=== PATIENT | female | born 1975 | race Caucasian/White ===

== ENCOUNTER 2019-02-27 17:36 | Emergency (ER) | payer OTHER, SELFPAY ==
[2019-02-27 17:49] VITALS: BP 128/88; PULSE 96; RESP 14; TEMP 37; O2SAT 99
--- NOTE | 2019-02-27 18:17 | ED.LOWEXIN ---
HPI - Extremity Injury (Lower) <Jeanne Pathak PA-C - Last Filed: 02/27/19 21:02> General Chief Complaint: Extremity Injury, Lower Stated Complaint: right calf injury today Time Seen by Provider: 02/27/19 18:16 Source: patient Mode of arrival: wheelchair Limitations: no limitations History of Present Illness HPI Narrative: This 43-year-old female states that she was playing kickball earlier, running between bases, when she felt a pop in her right calf and then had pain and could not bear weight. She states she did not fall or have any other injury, denies pain in the ankle or knee. She states this is similar to injury she had last year. She took 400 mg of ibuprofen. She denies any possibility of Related Data Home Medications Medication Instructions Recorded Confirmed ibuprofen #0 12/08/17 Previous Rx's Medication Instructions Recorded hydrocodone-acetaminophen 0 tab PO Q6HP PRN #15 tab 12/08/17 Allergies Allergy/AdvReac Type Severity Reaction Status Date / Time No Known Drug Allergies Allergy Verified 02/27/19 18:40 Review of Systems <Jeanne Pathak PA-C - Last Filed: 02/27/19 21:02> Review of Systems ROS Unobtainable: All systems reviewed & are unremarkable except as noted in HPI and below PFSH <Jeanne Pathak PA-C - Last Filed: 02/27/19 21:02> Medical History (Updated 02/27/19 @ 19:34 by Jeanne Pathak PA-C) No chronic problems (Chronic) Surgical History (Updated 02/27/19 @ 18:52 by Jeanne Pathak PA-C) 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 LUNGS: Clear to auscultation bilaterally. HEART: Rate and rhythm regular without murmur, normal S1 and S2, no S3 or S4. MUSCULOSKELETAL: No tenderness over the right foot or ankle. Achilles is intact by palpation. Tender over the right mid the calf and medial more than lateral border of the calf. No tenderness at the calf insertions. No tenderness over the right knee. She has full range of motion of the right ankle nonweightbearing, able to dorsiflex and plantar flex the foot against resistant. NEUROVASCULAR: Right foot is warm and pink with brisk cap refill, sensation is grossly intact Initial Vital Signs Initial Vital Signs: Vital Signs Temperature 98.6 F 02/27/19 17:49 Pulse Rate 96 H 02/27/19 17:49 Respiratory Rate 14 02/27/19 17:49 Blood Pressure 128/88 02/27/19 17:49 Pulse Oximetry 99 02/27/19 17:49 <Hi Beck DO - Last Filed: 02/27/19 21:14> Initial Vital Signs Initial Vital Signs: Vital Signs Temperature 98.6 F 02/27/19 17:49 Pulse Rate 96 H 02/27/19 17:49 Respiratory Rate 14 02/27/19 17:49 Blood Pressure 128/88 02/27/19 17:49 Pulse Oximetry 99 02/27/19 17:49 Course <Jeanne Pathak PA-C - Last Filed: 02/27/19 21:02> Orders Ordered: Discontinued Medications Hydrocodone Bitart/Acetaminophen ([place] 5/325) 2 tab PO NOW ONE Stop: 02/27/19 18:31 Last Admin: 02/27/19 18:38 Dose: 2 tab Hydrocodone Bitart/Acetaminophen (Vicodin Prepack) 1 bottle MISC SEEINSTR ONE Stop: 02/27/19 19:39 Last Admin: 02/27/19 19:50 Dose: 1 bottle Cyclobenzaprine HCl (Flexeril 10 Mg Prepack) 1 bottle MISC SEEINSTR ONE Stop: 02/27/19 19:39 Last Admin: 02/27/19 19:49 Dose: 1 bottle Ibuprofen (Advil) 400 mg PO NOW ONE Stop: 02/27/19 18:31 Last Admin: 02/27/19 18:38 Dose: 400 mg Vital Signs - 8 hr 02/27/19 17:49 02/27/19 20:01 Temperature 98.6 F Pulse Rate 96 H 96 H Respiratory Rate 14 18 Blood Pressure 128/88 147/87 H Pulse Oximetry 99 97 <Hi Kiran, DO - Last Filed: 02/27/19 21:14> Orders Ordered: Discontinued Medications Hydrocodone Bitart/Acetaminophen ([place] 5/325) 2 tab PO NOW ONE Stop: 02/27/19 18:31 Last Admin: 02/27/19 18:38 Dose: 2 tab Hydrocodone Bitart/Acetaminophen (Vicodin Prepack) 1 bottle MISC SEEINSTR ONE Stop: 02/27/19 19:39 Last Admin: 02/27/19 19:50 Dose: 1 bottle Cyclobenzaprine HCl (Flexeril 10 Mg Prepack) 1 bottle MISC SEEINSTR ONE Stop: 02/27/19 19:39 Last Admin: 02/27/19 19:49 Dose: 1 bottle Ibuprofen (Advil) 400 mg PO NOW ONE Stop: 02/27/19 18:31 Last Admin: 02/27/19 18:38 Dose: 400 mg Vital Signs - 8 hr 02/27/19 17:49 02/27/19 20:01 Temperature 98.6 F Pulse Rate 96 H 96 H Respiratory Rate 14 18 Blood Pressure 128/88 147/87 H Pulse Oximetry 99 97 Discharge Plan Departure Patient Disposition: Home Clinical Impression: Strain of calf muscle Qualifiers: Encounter type: initial encounter Laterality: right Qualified Code(s): S86.811A - Strain of other muscle(s) and tendon(s) at lower leg level, right leg, initial encounter Discharge Date/Time: 02/27/19 20:01 Interventions: ED Discharge Assessment Last Done: 02/27/19 20:01 Instructions: DI for Calf Muscle Strain Activity Restrictions/Additional Instructions: Today it looks like you have torn fibers in your calf muscle (strain), but the muscle does not appear to be completely torn off of its attachments. Please continue to rest this, take ibuprofen 800 mg every 8 hours. We gave you a little bit of hydrocodone/acetaminophen in addition for pain (1 tablet every 4 hours) and muscle relaxant called cyclobenzaprine (1 tablet every 8 hours) which you can take as needed, but do not drive as these can make you sleepy. Please call your clinic 1st thing in the morning and let them know you were seen in the emergency room and need to be seen for follow-up. Please keep your calf wrapped if it helps for support and comfort. Continue ice tonight, and use crutches whenever you are on your feet. As we talked about, you may need imaging studies if you are not getting better or you may need repeat physical therapy as you had previously for similar injury. Return to the closest ED if you have any acutely worsening symptoms or new symptoms such as color change or sensation loss in your foot. Prescriptions: No Action ibuprofen 800 MG tablet Qty: 0 RF: 0 hydrocodone-acetaminophen 5 MG/325 MG tablet PO Q6HP PRNQty: 15 RF: 0 Referrals: Anson Mckinney CNP [Primary Care Provider] - <Hi Beck DO - Last Filed: 02/27/19 21:14> Cosign ED Attending [place] Attestation: I was available for consultation during this patient's emergency department encounter
[2019-02-27] MEDS: IBUPROFEN 400 MG TABLET PO (18:38)
[2019-02-27] MEDS: HYDROCODONE/ACET 5/325 TABLET 2 TAB PO (18:38)
[2019-02-27] MEDS: CYCLOBENZAPRINE 10 MG PREPACK 1 BOTTLE MISC (19:49)
[2019-02-27] MEDS: HYDROCODONE/ACET 5/325 PREPACK 1 BOTTLE MISC (19:50)
[2019-02-27 20:01] VITALS: BP 147/87; PULSE 96; RESP 18; O2SAT 97
== END 2019-02-27 20:01 | disposition home or self-care (01) ==
PROVIDERS: Emergency Provider Internal Medicine; PCP Registered Nurse Diabetes Educator
DX: S86.811A Strain of other muscle(s) and tendon(s) at lower leg level, right leg, initial encounter (principal); Y93.6A Activity, physical games generally associated with school recess, summer camp and children
CPT/HCPCS: 99282; 99283